=== PATIENT | female | born 1985 | race Caucasian/White ===

== ENCOUNTER → 2016-12-25 | Outpatient (CLI) | payer BC ==
[~2016-12-25] MED LIST: CHOL1000 PO; CLR10 PO; PRENTAB26 PO
[2016-12-25 09:52] LABS: PREG INTERNAL NEGATIVE QC NEG CLEAR BACKGROUND; PREG INTERNAL POSITIVE QC POS CONTROL LINE
[2016-12-27 01:21] LABS: CHLAMYDIA TRACH RNA*** NOT DETECTED (NOT DETECTED); GC (NEIS GONORRHOEAE)RNA** NOT DETECTED (NOT DETECTED)
== END | disposition home or self-care (01) ==
LOC: C.LAB 09:15
PROVIDERS: ATTEND Obstetrics & Gynecology
DX: Z30.430 Encounter for insertion of intrauterine contraceptive device (principal); Z30.9 Encounter for contraceptive management, unspecified

== ENCOUNTER → 2018-06-05 | Outpatient (CLI) | payer BC | END | disposition home or self-care (01) | LOC: C.LAB 09:45 | PROVIDERS: ATTEND Physician Assistant | DX: T14.8XXA Other injury of unspecified body region, initial encounter (principal); W57.XXXA Bitten or stung by nonvenomous insect and other nonvenomous arthropods, initial encounter ==

== ENCOUNTER → 2018-06-12 | Outpatient (CLI) | payer BC | END | disposition home or self-care (01) | LOC: C.LABSPEC 17:25 | PROVIDERS: ATTEND Obstetrics & Gynecology | DX: Z34.81 Encounter for supervision of other normal pregnancy, first trimester (principal) ==

== ENCOUNTER → 2018-06-19 | Outpatient (CLI) | payer BC ==
[2018-06-19 17:16] LABS: BASO % 0.2 %; BASO ABS # 0.02 K/uL (0-0.2); HEMOGLOBIN 12.8 g/dL (12.0-16.0); IG# 0.02 K/uL (0.00-0.02); LYMPH % 21.2 %; LYMPH ABS # 2.17 K/uL (1.2-3.4); MEAN CELL VOLUME 88.4 fL (80-100); MEAN CORPUSCULAR HEMOGLOBIN 29.8 pg (25-34); MEAN CORPUSCULAR HGB CONC 33.7 g/dl (32-36); MEAN PLATELET VOLUME 9.7 fL (7.4-10.4); MONO % 4.8 %; MONO ABS # 0.49 K/uL (0.11-0.59); NEUT % 72.6 %; NEUT ABS # 7.42 K/uL (1.4-6.5); PLATELET COUNT 240 K/uL (130-400); RED CELL DISTRIBUTION WIDTH CV 13.1 % (11.5-14.5); RED CELL DISTRIBUTION WIDTH SD 42.4 fL (36.4-46.3); WHITE BLOOD COUNT 10.22 K/uL (4.8-10.8)
== END | disposition home or self-care (01) ==
LOC: C.LAB1850 15:45
PROVIDERS: ATTEND Obstetrics & Gynecology
DX: Z34.81 Encounter for supervision of other normal pregnancy, first trimester (principal)

== ENCOUNTER 2019-02-01 02:25 | Inpatient (IN) ==
[2019-02-01] MEDS ORDERED: OXYTOCIN 30 UNITS/500 ML BAG IV PRN ×2 (03:02→04:24)
[2019-02-01] MEDS ORDERED: LACTATED RINGER'S 1,000 ML IV PRN (03:02)
--- NOTE | 2019-02-01 03:05 | History & Physical Report ---
Date of Service February 01, 2019 Assessment & Plan (1) : Admit to L&D, anticipate . History of Present Illness Chief Complaint: labor Primary Care Provider: Edwin Mccoy MD 33yo @ 40 04/02 presents with regular ctx. No leaking fluid, no vaginal bleeding. + movement. Uncomplicated . Allergies Allergy/AdvReac Type Severity Reaction Status Date / Time grass pollen-perennial rye, Allergy Mild Allergy Verified 02/01/19 02:44 standar symptoms pollen extracts Allergy Mild Allergy Verified 02/01/19 02:44 symptoms Dust Allergy Mild Allergies Uncoded 02/01/19 02:44 Home Medications Home Medications Medication Instructions Recorded Confirmed Type CHOLECALCIFEROL (VITAMIN D3) 1 tab PO DAILY 30 Days #30 tab 09/12/16 02/01/19 History Loratadine (Claritin) 10 mg PO DAILY #0 tab 09/12/16 02/01/19 History Multivit/Min/Iron/Fol Ac/Pren 1 tab PO DAILY #0 tab 09/12/16 02/01/19 History ( Vitamin) Physical Exam Vital Signs (Past 24 Hours): Last Vital Signs Pulse 103 H 02/01/19 02:41 BP 129/77 02/01/19 02:41 Physical Exam: Gen: AAOx3 NAD CV: RRR L: CTAB Abd: soft, gravid Ext: no edema, no calf tenderness SVE 6/100/-1 FHT Cat 1 [place]: Q2
[2019-02-01] MEDS ORDERED: LACTATED RINGER'S 1,000 ML IV SCH (03:15)
[2019-02-01 03:26] LABS: Hematocrit (blood only) 35.9 % (37-47); Hemoglobin 12.2 g/dL (12.0-16.0); Mean Corpuscular Volume 88.9 fL (80-100); Mean Platelet Volume 9.3 fL (7.4-10.4); Platelet Count 180 K/uL (130-400); RDW Coefficient of Variation 14.9 % (11.5-14.5); RDW Standard Deviation 48.7 fL (36.4-46.3); Red Blood Count 4.04 M/uL (4.2-5.4); White Blood Count 14.31 K/uL (4.8-10.8)
--- NOTE | 2019-02-01 03:48 | Anesthesiology Consultation ---
Date of Service February 01, 2019 History Height/Weight Height: 5 ft 8 in Weight: 84.822 kg Allergies Allergy/AdvReac Type Severity Reaction Status Date / Time grass pollen-perennial rye, Allergy Mild Allergy Verified 02/01/19 02:44 standar symptoms pollen extracts Allergy Mild Allergy Verified 02/01/19 02:44 symptoms Dust Allergy Mild Allergies Uncoded 02/01/19 02:44 Medications Home Medications Medication Instructions Recorded Confirmed Last Taken CHOLECALCIFEROL (VITAMIN D3) 1 tab PO DAILY 30 Days #30 tab 09/12/16 02/01/19 01/31/19 08:00 Loratadine (Claritin) 10 mg PO DAILY #0 tab 09/12/16 02/01/19 01/31/19 09:00 Multivit/Min/Iron/Fol Ac/Pren 1 tab PO DAILY #0 tab 09/12/16 02/01/19 01/31/19 09:00 ( Vitamin) Past Medical History Medical History History of epidural anesthesia Term Social History Smoking Status: Never smoker Hx Alcohol Use: No Hx Substance Use: No Physical Exam Vital Signs Last Vital Signs Temp 36.9 C 02/01/19 02:54 Pulse 92 H 02/01/19 03:40 Resp 20 02/01/19 02:54 BP 129/77 02/01/19 02:54 Pulse Ox 96 02/01/19 03:40 Testing Laboratory Results 02/01/19 03:12
--- NOTE | 2019-02-01 04:15 | Procedure Note ---
Vaginal Delivery Summary Date of Service February 01, 2019 Vaginal Delivery Summary Predelivery diagnoses: 33yo @ 40 6/7, spontaneous labor Postdelivery diagnoses: same + thick meconium staining of amniotic fluid, 1st degre perineal laceration Procedure: spontaneous vaginal delivery Surgeon: Dr Tillman EBL: 300ml Findings: viable female , Apgars 8/9. Please see nursery records for weight. Complications: none Description of delivery: Patient presented in spontaneous labor, sat up to receive epidural, had spontaneous rupture of membranes for thick meconium staining, and began to feel urge to push. At this time, the head was at the perineum, and she was unable to receive epidural. She pushed twice, and the female was delivered from cephalic presentation. The head delivered in right occiput anterior position, no nuchal cord was noted, the anterior shoulder delivered, followed by posterior shoulder, followed by body. Baby was placed on mother's abdomen, a spontaneous cry was heard. The cord was doubly clamped and cut, and cord blood was obtained. The placenta was delivered spontaneously intact with a three-vessel cord. The uterus and vagina were swabbed of all clots and debris. Pitocin was given, and the uterus became firm. The cervix vagina and perineum were inspected, and a first-degree perineal laceration was noted. This was found to be hemostatic, and therefore not repaired. Patient was agreeable to this plan. Sponge, instrument counts were correct x2 at the conclusion of the delivery. Baby and mother recovering in the room in stable and good condition.
[2019-02-01] MEDS ORDERED: IBUPROFEN 600 MG TAB PO ONE (04:20)
[2019-02-01] MEDS ORDERED: BENZOCAINE 20% AER SPR 82.5 GM CAN EXT PRN (04:24)
[2019-02-01] MEDS ORDERED: OXYCODONE/ACETAMINOPHEN 5mg/325mg TAB PO PRN (04:24)
[2019-02-01] MEDS ORDERED: SUPERCREAM 0.870% 15 GM JAR EXT PRN (04:24)
[2019-02-01] MEDS ORDERED: HYDROCORTISONE ACETATE 25 MG SUPP PR PRN (04:24)
[2019-02-01] MEDS ORDERED: BISACODYL 10 MG SUPP PR PRN (04:24)
[2019-02-01] MEDS ORDERED: ACETAMINOPHEN 325 MG TAB PO PRN (04:24)
[2019-02-01] MEDS ORDERED: DIPHTHERIA/TETANUS/PERTUSSIS 0.5 ML SYR/VIAL IM ONE (04:24)
[2019-02-01] MEDS: PRENATAL VITAMIN 1 TAB PO SCH (08:35)
[2019-02-01] MEDS: CHOLECALCIFEROL 1,000 UNITS TAB PO SCH (08:36)
[2019-02-01] MEDS: LORATADINE 10 MG TAB PO SCH (08:36)
[2019-02-01] MEDS: DOCUSATE SODIUM 100 MG CAP PO SCH ×2 (08:36→20:16)
[2019-02-01] MEDS ORDERED: NON-FORMULARY MEDICATION (Multivit/Min/Iron/Fol Ac/Pren (Prenatal Vitamin) 1 TAB) PO SCH (09:00)
[2019-02-01] MEDS: IBUPROFEN 600 MG TAB PO PRN (20:16)
[2019-02-02 06:24] LABS: Hematocrit (blood only) 34.7 % (37-47); Hemoglobin 11.4 g/dL (12.0-16.0)
--- NOTE | 2019-02-02 06:58 | Obstetrical Progress Note ---
Date of Service <Kb Johnson - Last Filed: 02/02/19 06:58> February 02, 2019 Assessment & Plan <Kb Johnson - Last Filed: 02/02/19 06:58> (1) Spontaneous vaginal delivery: PPD #1, patient would like to be discharged home today if able, discharge instructions reviewed at bedside with patient, concerns/questions addressed at bedside (2) : Subjective <Kb Johnson - Last Filed: 02/02/19 06:58> Ambulation: ambulating normally Voiding: no voiding problems Passing Gas:: Yes Diet Tolerance:: regular diet Lochia:: Small Feeding Type:: breast feeding Lo states she is doing well this morning and is ready for discharge home if medically cleared. She denies fever, chills, chest pain, shortness of breath, nausea, vomiting. Physical Exam <Kb Johnson - Last Filed: 02/02/19 06:58> Vital Signs (Past 24 Hours) Last Vital Signs Temp 36.6 C 02/02/19 04:15 Pulse 77 02/02/19 04:15 Resp 18 02/02/19 04:15 BP 114/68 02/02/19 04:15 Pulse Ox 98 02/01/19 04:00 Constitutional WD/WN, vitals as above cooperative and comfortable Eyes + anicteric sclerae and EOM intact bilaterally Neck normal visual inspection and trachea midline Respiratory normal respiratory effort, lungs clear to auscultation Cardiovascular RRR, no murmur, no edema Gastrointestinal (Abdomen) Percussion/Palpation: abdomen soft; abdomen nontender uterine fundus is firm, non-tender, 3cm inferior to umbilicus Musculoskeletal Head/Neck/Chest: normocephalic and head atraumatic Skin no rashes, warm and dry Neurologic moves all extremities and awake Psychiatric A+Ox3, euthymic affect Results & Data <Kb Johnson - Last Filed: 02/02/19 06:58> Laboratory Results Laboratory Results - last 24 hr 02/02/19 06:13 Hgb 11.4 L Hct 34.7 L Medications Administered Benzocaine (Dermoplast Pain Relieving [place]) 1 appln EXT PRN PRN PRN Reason: Perineal Discomfort Stop: 03/03/19 04:23 Last Admin: 02/01/19 08:11 Dose: 82.5 appln Documented by: [id number] Docusate Sodium (Colace) 100 mg PO BID [facility] Stop: 03/03/19 08:59 Last Admin: 02/01/19 20:16 Dose: 100 mg Documented by: [id number] Admin: 02/01/19 08:36 Dose: 100 mg Documented by: [id number] Oxytocin (Pitocin) 30 units in 500 mls @ 333.333 mls/hr IV .Q1H30M PRN; Protocol PRN Reason: BLEEDING CONTROL Stop: 03/03/19 04:23 Last Admin: 02/01/19 04:02 Dose: 59.94 units/hr, 999 mls/hr Documented by: [id number] Cosigned by: [id number] Ibuprofen (Motrin) 600 mg PO Q4H PRN PRN Reason: Pain/BROWN/Cramping/Fever Stop: 03/03/19 04:23 Last Admin: 02/01/19 20:16 Dose: 600 mg Documented by: [id number] Loratadine (Claritin) 10 mg PO DAILY [facility] Stop: 03/03/19 08:59 Last Admin: 02/01/19 08:36 Dose: 10 mg Documented by: [id number] Prenat Multivit/[employer] Director/Iron/Folic Ac ( Vitamin) 1 tab PO QAM [facility] Stop: 03/03/19 08:59 Last Admin: 02/01/19 08:35 Dose: 1 tab Documented by: [id number] Vitamin D (Vitamin D3) 1,000 units PO DAILY [facility] Stop: 03/03/19 08:59 Last Admin: 02/01/19 08:36 Dose: 1,000 units Documented by: [id number] <Martha Jensen MD, FACOG - Last Filed: 02/02/19 07:10> Co-Signing Physician Notes Resident Physician Supervision Note: I interviewed and examined the patient. Discussed with Dr. Dinh and agree with findings and plan as documented in the note. Any exceptions or clarifications are listed here: [None] Documented By: Martha Jensen MD, FACOG
[2019-02-02] MEDS: IBUPROFEN 600 MG TAB PO PRN (07:27)
[2019-02-02] MEDS: LORATADINE 10 MG TAB PO SCH (08:45)
[2019-02-02] MEDS: CHOLECALCIFEROL 1,000 UNITS TAB PO SCH (08:45)
[2019-02-02] MEDS: PRENATAL VITAMIN 1 TAB PO SCH (08:45)
[2019-02-02] MEDS: DOCUSATE SODIUM 100 MG CAP PO SCH (08:45)
[2019-02-02] MEDS ORDERED: BISACODYL 5 MG TABEC PO SCH (20:00)
== END 2019-02-02 13:25 | disposition home or self-care (01) | DRG 807 ==
LOC: OPB 02:25 → 4S1 02:27 → 4S2 06:25